=== PATIENT | female | born 1975 | race Caucasian/White ===

== ENCOUNTER 2021-07-21 01:00 | Emergency (ER) | payer BC ==
[2021-07-21 01:14] VITALS: BP 139/89; PULSE 87; RESP 19; TEMP 99.2
[2021-07-21] MEDS ORDERED: IBUPROFEN 600 MG STARTER PACK 4 TAB BTL PO STA (01:45)
[2021-07-21] MEDS ORDERED: Acetaminophen-Codeine 300-30mg TAB PO STA (01:45)
[2021-07-21] MEDS ORDERED: IBUPROFEN 600 MG TAB PO STA (01:45)
[2021-07-21] MEDS ORDERED: ACET/COD 300 MG/30 MG STARTER PACK 6 TAB BTL PO STA (01:45)
--- NOTE | 2021-07-21 01:47 | ED ---
Lower Extremity Injury HPI - General Chief Complaint: Extremity Injury, Lower Stated Complaint: bilateral leg swelling Time Seen by Provider: 07/21/21 01:24 Source: patient, family, RN notes reviewed, old records reviewed Mode of arrival: wheelchair Limitations: no limitations - History of Present Illness Initial Comments: This is a 46-year-old female DF for evaluation she presents today for evaluation regards to lower [place] pain swelling and edema. Patient states she is very concerned about possible DVT possible concern for DVT secondary to what she believes maybe history of DVTs. She has no chest pain or shortness of breath no other real complaints she does admit to some increased swelling in her right lower extremity compared to her left. MD Complaint: leg injury, ankle injury -: days(s) Injury: Ankle: Right, Left Place: home Severity: mild Severity scale (1-10): 3 Worsens With: nothing Context: other (No injury) Associated Symptoms: swelling Treatments Prior to Arrival: cold therapy - Related Data Allergies Allergy/AdvReac Type Severity Reaction Status Date / Time Penicillins Allergy Rash/Hives Verified 07/21/21 01:14 Review of Systems ROS Statement: Those systems with pertinent positive or pertinent negative responses have been documented in the HPI. ROS Other: All systems not noted in ROS Statement are negative. Past Medical History Past Medical History: Cancer, Hypertension Additional Past Medical History / Comment(s): breast cancer, History of Any Multi-Drug Resistant Organisms: None Reported Additional Past Surgical History / Comment(s): masectomy, lymph nodes removed Past Psychological History: Depression Smoking Status: Never smoker Past Alcohol Use History: None Reported Past Drug Use History: None Reported General Exam General appearance: alert, in no apparent distress Head exam: Present: atraumatic, normocephalic, normal inspection Eye exam: Present: normal appearance, PERRL, EOMI. Absent: scleral icterus, conjunctival injection, periorbital swelling ENT exam: Present: normal exam, mucous membranes moist Neck exam: Present: normal inspection. Absent: tenderness, meningismus, lymphadenopathy Respiratory exam: Present: normal lung sounds bilaterally. Absent: respiratory distress, wheezes, rales, rhonchi, stridor Cardiovascular Exam: Present: regular rate, normal rhythm, normal heart sounds. Absent: systolic murmur, diastolic murmur, rubs, gallop, clicks GI/Abdominal exam: Present: soft, normal bowel sounds. Absent: distended, tenderness, guarding, rebound, rigid Extremities exam: Present: normal inspection, full ROM, normal capillary refill. Absent: tenderness, pedal edema, joint swelling, calf tenderness Back exam: Present: normal inspection Neurological exam: Present: alert, oriented X3, CN II-XII intact Psychiatric exam: Present: normal affect, normal mood Skin exam: Present: warm, dry, intact, normal color. Absent: rash Course Vital Signs 07/21/21 01:06 Temperature 99.2 F Pulse Rate 87 Respiratory 19 Rate Blood Pressure 139/89 O2 Sat by Pulse 98 Oximetry - Reevaluation(s) Reevaluation #1: 07/21/21 Medical records reviewed Reevaluation #2: 07/21/21 Patient able to ambulate no distress Reevaluation #3: 07/21/21 Consult the patient at length regarding findings and physical exam. Patient's reassured and feels good with discharge Medical Decision Making - Medical Decision Making 46 female given significant reassurance about ankle swelling. [place] signs and symptoms of DVT patient can be discharged home Disposition Clinical Impression: Right ankle sprain, Edema of right ankle Disposition: HOME SELF-CARE Condition: Good Instructions (If sedation given, give patient instructions): Ankle Sprain (ED), Leg Edema (ED) Is patient prescribed a controlled substance at d/c from ED?: No Referrals: Nonstaff,Physician [Primary Care Provider] - 1-2 days Time of Disposition: 02:10
== END 2021-07-21 02:19 | disposition home or self-care (01) ==
LOC: EC 01:00
DX: S93.401A Sprain of unspecified ligament of right ankle, initial encounter (principal); R60.0 Localized edema; I10 Essential (primary) hypertension; X58.XXXA Exposure to other specified factors, initial encounter; Y92.009 Unspecified place in unspecified non-institutional (private) residence as the place of occurrence of the external cause
CPT/HCPCS: 99283